=== PATIENT | female | born 1985 | race Caucasian/White ===

== ENCOUNTER 2017-07-31 18:53 | Emergency (ER) | payer MEDICAID, OTHER ==
[~2017-07-31] VITALS: Ht 160 cm; Wt 64.0 kg
[~2017-07-31 18:53] MED LIST: HYDR-1348
[2017-07-31] MEDS ORDERED: KETOROLAC 30MG/ML VIAL IM STA (23:30)
[2017-07-31] MEDS ORDERED: ONDANSETRON 4MG ODT PO STA (23:30)
[2017-08-01 00:45] LABS: BASOPHILS % 0.3 % (0.0-2.0); EOSINOPHILS % 0.5 % (0.0-5.0); HEMATOCRIT. 38.3 % (36.0-48.0); HEMOGLOBIN. 13.1 g/dL (12.0-16.0); LYMPHOCYTES % 23.4 % (20.0-50.0); MEAN CORPUSCULAR HEMOGLOBIN 33.3 pg (28.0-32.0); MEAN CORPUSCULAR VOLUME 97.5 fL (81.0-99.0); MEAN PLATELET VOLUME 10.6 fl (7.4-10.4); MONOCYTES % 7.8 % (2.0-8.0); PLATELET 178 x1000/uL (130-400); RED BLOOD CELL COUNT 3.93 mill/uL (4.2-5.4); RED CELL DISTRIBUTION WIDTH 12.6 % (11.6-14.6)
[2017-08-01 00:52] LABS: CHLORIDE 107 mEq/L (98-107)
[2017-08-01 01:08] LABS: CARBON DIOXIDE 25 mEq/L (21-32)
[2017-08-01 01:14] LABS: INR 1.1; PROTHROMBIN TIME 11.6 sec (9.4-11.6)
[2017-08-01 01:41] LABS: CLARITY URINE CLEAR (CLEAR); COLOR URINE YELLOW (YELLOW); GLUCOSE URINE NEGATIVE (NEGATIVE); KETONES URINE TRACE (NEGATIVE); LEUKOCYTE ESTERASE URINE NEGATIVE (NEGATIVE); NITRITE URINE NEGATIVE (NEGATIVE); OCCULT BLOOD URINE NEGATIVE (NEGATIVE); PH URINE 6.5 (4.5-8.0); PROTEIN URINE NEGATIVE (NEGATIVE); SPECIFIC GRAVITY URINE 1.035 (1.005-1.030)
[2017-08-01] MEDS ORDERED: CEFTRIAXONE SODIUM 250 MG/VIAL IM NR (02:00)
[2017-08-01 02:08] VITALS: BP 103/68
[2017-08-01] MEDS ORDERED: LIDOCAINE HCL 1% 20ML VIAL (Pyxis) INJ INFIL ONE (02:45)
[2017-08-05 06:20] LABS: CHLAMYDIA TRACHOMATIS NAA Negative (Negative); NEISSERIA GONORRHOEAE NAA Negative (Negative)
== END 2017-08-01 02:48 | disposition home or self-care (01) ==
LOC: ER 18:53
DX: N73.9 Female pelvic inflammatory disease, unspecified (principal); N83.202 Unspecified ovarian cyst, left side
CPT/HCPCS: 36415; 76830; 76856; 80053; 81003; 81025; 83690; 85025; 85610; 87210; 87491; 87591; 96372; 99285; J0696; J1885; J3490; Q0162; Z7610

== ENCOUNTER 2018-04-28 22:44 | Emergency (ER) | payer MEDICAID, OTHER ==
[~2018-04-28] VITALS: Ht 160 cm; Wt 64.0 kg
[2018-04-28] MEDS ORDERED: ONDANSETRON HCL 4MG/2ML VIAL IV ONE (23:15)
[2018-04-28] MEDS ORDERED: SODIUM CHLORIDE 0.9% 1,000 ML IV ONE (23:30)
[2018-04-28] MEDS ORDERED: MORPHINE SULFATE 2 MG/ML CPJ (NOT FOR IM USE) IV ONE (23:30)
[2018-04-28] MEDS ORDERED: LORAZEPAM 2MG/ML CPJ IV ONE (23:30)
[2018-04-29 01:49] VITALS: BP 110/56
== END 2018-04-29 01:52 | disposition home or self-care (01) ==
LOC: ER 22:44
DX: S06.0X1A Concussion with loss of consciousness of 30 minutes or less, initial encounter (principal); W10.8XXA Fall (on) (from) other stairs and steps, initial encounter; Y93.9 Activity, unspecified; Y92.9 Unspecified place or not applicable; F17.200 Nicotine dependence, unspecified, uncomplicated
CPT/HCPCS: 70450; 72125; 81025; 96361; 96374; 96375; 99285; J2060; J2270; J2405; J7030

== ENCOUNTER 2019-01-30 10:35 | Emergency (ER) | payer MEDICAID ==
[~2019-01-30] VITALS: Ht 160 cm; Wt 70.0 kg
[2019-01-30] MEDS ORDERED: SODIUM CHLORIDE 0.9% 1,000 ML IV ONE (11:15)
[2019-01-30 11:38] LABS: BASOPHILS % 0.5 % (0.0-2.0); EOSINOPHILS % 0.5 % (0.0-5.0); HEMATOCRIT. 42.7 % (36.0-48.0); HEMOGLOBIN. 14.5 g/dL (12.0-16.0); LYMPHOCYTES % 21.9 % (20.0-50.0); MEAN CORPUSCULAR HEMOGLOBIN 33.4 pg (28.0-32.0); MEAN CORPUSCULAR VOLUME 98.3 fL (81.0-99.0); MEAN PLATELET VOLUME 10.7 fl (7.4-10.4); MONOCYTES % 7.8 % (2.0-8.0); NEUTROPHILS % 69.3 % (40.0-76.0); PLATELET 190 x1000/uL (130-400); RED BLOOD CELL COUNT 4.35 mill/uL (4.2-5.4); RED CELL DISTRIBUTION WIDTH 12.7 % (11.6-14.6)
[2019-01-30 11:41] LABS: CHLORIDE 108 mEq/L (98-107)
[2019-01-30 11:52] LABS: B-HCG QUANTITATIVE 5 mIU/mL (<3)
[2019-01-30 14:04] LABS: CLARITY URINE CLOUDY (CLEAR); COLOR URINE RED (YELLOW); KETONES URINE NEGATIVE (NEGATIVE); LEUKOCYTE ESTERASE URINE TRACE (NEGATIVE); NITRITE URINE NEGATIVE (NEGATIVE); OCCULT BLOOD URINE 3+ (NEGATIVE); PH URINE 5.5 (4.5-8.0); PROTEIN URINE NEGATIVE (NEGATIVE); SPECIFIC GRAVITY URINE 1.019 (1.005-1.030); UROBILINOGEN URINE 0.2 E.U./dL (0.2-1.0)
[2019-01-30 14:17] LABS: *AMPHETAMINES SCREEN URINE NEGATIVE (NEGATIVE); *BARBITURATES SCREEN URINE NEGATIVE (NEGATIVE); *BENZODIAZEPINES SCREEN URINE NEGATIVE (NEGATIVE); *COCAINE SCREEN URINE NEGATIVE (NEGATIVE)
[2019-01-30 14:18] LABS: CANNABINOID URINE SCREEN NEGATIVE (NEGATIVE); METHADONE URINE SCREEN NEGATIVE (NEGATIVE); OPIATES URINE SCREEN NEGATIVE (NEGATIVE); PHENCYCLIDINE URINE SCREEN NEGATIVE (NEGATIVE)
[2019-01-30 15:15] VITALS: BP 120/79
== END 2019-01-30 15:32 | disposition home or self-care (01) ==
LOC: ER 11:13
DX: N93.8 Other specified abnormal uterine and vaginal bleeding (principal); D72.819 Decreased white blood cell count, unspecified; E87.8 Other disorders of electrolyte and fluid balance, not elsewhere classified; N17.0 Acute kidney failure with tubular necrosis; N39.0 Urinary tract infection, site not specified; R31.9 Hematuria, unspecified; R93.89 Abnormal findings on diagnostic imaging of other specified body structures
CPT/HCPCS: 36415; 76830; 76856; 80053; 80305; 81003; 84702; 85025; 86850; 86900; 86901; 87040; 87077; 87086; 93005; 99284; J7030

== ENCOUNTER 2019-08-29 15:17 | Emergency (ER) | payer MEDICAID ==
[~2019-08-29] VITALS: Ht 160 cm; Wt 63.0 kg
[2019-08-29] MEDS ORDERED: KETOROLAC 60MG/2ML VIAL IM ONE (16:15)
[2019-08-29 17:01] VITALS: BP 115/87
== END 2019-08-29 17:02 | disposition home or self-care (01) ==
LOC: ER 15:17
DX: S90.01XA Contusion of right ankle, initial encounter (principal); Z87.440 Personal history of urinary (tract) infections; W22.8XXA Striking against or struck by other objects, initial encounter; Y93.89 Activity, other specified; Y92.018 Other place in single-family (private) house as the place of occurrence of the external cause
CPT/HCPCS: 29515; 73610; 96372; 99283; J1885

== ENCOUNTER 2020-04-27 17:51 | Emergency (ER) | payer MEDICAID ==
[~2020-04-27] VITALS: Ht 160 cm; Wt 61.0 kg
[2020-04-27] MEDS ORDERED: HYDROCODONE/ACETAMINOPHEN 5/325MG TABLET PO ONE (19:00)
[2020-04-27 19:01] VITALS: BP 120/84
== END 2020-04-27 19:16 | disposition home or self-care (01) ==
LOC: ER 17:51
DX: S09.90XA Unspecified injury of head, initial encounter (principal); H72.92 Unspecified perforation of tympanic membrane, left ear; Y04.0XXA Assault by unarmed brawl or fight, initial encounter; Y93.89 Activity, other specified; Y92.89 Other specified places as the place of occurrence of the external cause; Y99.8 Other external cause status
CPT/HCPCS: 99283

== ENCOUNTER 2022-11-29 11:47 | Emergency (ER) | payer MEDICAID, OTHER ==
[~2022-11-29] VITALS: Ht 160 cm; Wt 55.0 kg
[2022-11-29 12:03] VITALS: BP 113/79
[2022-11-29] MEDS ORDERED: ACETAMINOPHEN 325MG TABLET PO ONE (12:15)
[2022-11-29] MEDS ORDERED: CYCL10TA21 MT (13:17)
[2022-11-29] MEDS ORDERED: NAPR-681 MT (13:17)
== END 2022-11-29 13:32 | disposition home or self-care (01) ==
LOC: ER 12:10
DX: S16.1XXA Strain of muscle, fascia and tendon at neck level, initial encounter (principal); S39.012A Strain of muscle, fascia and tendon of lower back, initial encounter; S46.811A Strain of other muscles, fascia and tendons at shoulder and upper arm level, right arm, initial encounter; S46.812A Strain of other muscles, fascia and tendons at shoulder and upper arm level, left arm, initial encounter; V49.49XA Driver injured in collision with other motor vehicles in traffic accident, initial encounter; Y93.89 Activity, other specified; Y92.488 Other paved roadways as the place of occurrence of the external cause
CPT/HCPCS: 81025; 99282

== ENCOUNTER 2023-10-27 10:17 | Emergency (ER) | payer MEDICAID, OTHER ==
[~2023-10-27] VITALS: Ht 160 cm; Wt 59.0 kg
[~2023-10-27 10:17] MED LIST changes: +CYCL10TA21 MT; -HYDR-1348; +NAPR-681 MT
[2023-10-27 10:23] VITALS: O2SAT 99
[2023-10-27] MEDS ORDERED: IBUPROFEN 600MG TABLET PO STA (12:12)
[2023-10-27] MEDS ORDERED: NAPR-681 PO (12:57)
[2023-10-27] MEDS ORDERED: CYCL5TAB MT (12:57)
[2023-10-27 13:11] VITALS: BP 118/72; PULSE 77; RESP 16; TEMP 98.2
== END 2023-10-27 13:12 | disposition home or self-care (01) ==
LOC: ER 10:17
DX: S16.1XXA Strain of muscle, fascia and tendon at neck level, initial encounter (principal); S39.012A Strain of muscle, fascia and tendon of lower back, initial encounter; V49.9XXA Car occupant (driver) (passenger) injured in unspecified traffic accident, initial encounter; Y93.89 Activity, other specified; Y92.89 Other specified places as the place of occurrence of the external cause; Y99.8 Other external cause status
CPT/HCPCS: 81025; 99283

== ENCOUNTER 2024-04-08 14:15 | Emergency (ER) | payer MEDICAID, OTHER ==
[~2024-04-08] VITALS: Ht 160 cm; Wt 59.0 kg
[~2024-04-08 14:15] MED LIST changes: +CYCL5TAB MT; +NAPR-681 PO
[2024-04-08 14:19] VITALS: O2SAT 100
[2024-04-08] MEDS ORDERED: P50 MT (15:00)
[2024-04-08] MEDS: PREDNISONE 20MG TABLET PO ONE (15:43)
[2024-04-08 15:45] VITALS: BP 118/71; PULSE 81; RESP 18; TEMP 98.1
== END 2024-04-08 15:50 | disposition home or self-care (01) ==
LOC: ER 14:23
DX: T78.40XA Allergy, unspecified, initial encounter (principal); X58.XXXA Exposure to other specified factors, initial encounter
CPT/HCPCS: 99283; J7512

== ENCOUNTER 2024-04-25 14:17 | Emergency (ER) | payer MEDICAID ==
[~2024-04-25] VITALS: Ht 165.1 cm; Wt 60.0 kg
[~2024-04-25 14:17] MED LIST changes: +P50 MT
[2024-04-25 14:40] VITALS: O2SAT 100
[2024-04-25] MEDS ORDERED: IBUP-2030 MT (15:22)
[2024-04-25] MEDS ORDERED: OFLO5DRO4 LEFT EAR (15:22)
[2024-04-25] MEDS ORDERED: MECL-299 MT (15:22)
[2024-04-25] MEDS: HYDROCODONE/ACETAMINOPHEN 10/325MG TABLET PO ONE (15:49)
[2024-04-25] MEDS: IBUPROFEN 800MG TABLET PO ONE (15:49)
[2024-04-25 15:53] VITALS: BP 128/74; PULSE 84; RESP 18; TEMP 97.9
== END 2024-04-25 15:47 | disposition home or self-care (01) ==
LOC: ER 14:17
DX: H72.92 Unspecified perforation of tympanic membrane, left ear (principal); Z79.899 Other long term (current) drug therapy
CPT/HCPCS: 81025; 99283